=== PATIENT | female | born 1995 | race Caucasian/White ===

== ENCOUNTER 2023-03-13 17:16 | Inpatient (IN) | payer MEDICAID ==
[~2023-03-13] VITALS: Ht 152.4 cm; Wt 47.2 kg
[2023-03-13 17:44] VITALS: BP 89/63
--- NOTE | 2023-03-13 17:51 | NUR ---
AMBULATED TO BED11. USED SPOOL [facility] [id number]
[2023-03-13 18:18] LABS: BASOPHILS % (AUTO) 0.6 % (0.0-2.0); EOSINOPHILS % (AUTO) 0.9 % (0.0-4.0); LYMPHOCYTES # (AUTO) 1.9 K/uL (2.5-16.5); LYMPHOCYTES % (AUTO) 36.4 % (20.5-51.1); MEAN CORPUSCULAR HEMOGLOBIN 15 pg (27-31); MEAN CORPUSCULAR HGB CONC 28 g/dL (33-37); MEAN CORPUSCULAR VOLUME 54.8 fL (80-94); MONOCYTES # (AUTO) 0.5 K/uL (0.8-1.0); MONOCYTES % (AUTO) 9.1 % (1.7-9.3); NEUTROPHILS # (AUTO) 2.7 K/uL (1.8-7.7); PLATELET COUNT (AUTO) 477 K/uL (140-450); RED BLOOD CELL COUNT(AUTO) 2.93 MIL/uL (4.20-5.40); RED CELL DISTRIBUTION WIDTH 22.5 % (11.6-13.7); WHITE BLOOD COUNT (AUTO) 5.1 K/uL (4.8-10.8)
[2023-03-13 18:25] LABS: HEMATOCRIT 16.1 % (36-48); HEMOGLOBIN 4.5 g/dL (12.0-16.0)
[2023-03-13 18:37] LABS: APPEARANCE,URINE CLEAR (CLEAR); BILIRUBIN,URINE NEGATIVE (NEGATIVE); BLOOD, URINE TRACE-I (NEGATIVE); COLOR,URINE YELLOW (YELLOW); LEUKOCYTE ESTERASE ,URINE 2+ (NEGATIVE); NITRITE, URINE NEGATIVE (NEGATIVE); PH,URINE 8.5 (5.0-9.0); UGLUCOSE NEGATIVE (NEGATIVE)
[2023-03-13 18:38] LABS: RBC,URINE 0-5 /HPF (0-5)
[2023-03-13 18:47] LABS: ANION GAP 10.7 (8-16); CARBON DIOXIDE 27.2 mmol/L (21-32); CREATININE 0.7 mg/dL (0.6-1.3); POTASSIUM 3.9 mmol/L (3.5-5.1); TOTAL BILIRUBIN 0.2 mg/dL (0.0-1.0)
[2023-03-13 19:08] LABS: PROTHROMBIN TIME 9.6 secs (10.8-13.4)
[2023-03-13] MEDS ORDERED: cefTRIAXone 1,000 MG VIAL ONE (19:11)
--- NOTE | 2023-03-13 19:45 | NUR ---
Consent signed per pt agreeing to administration of blood. Blood has been type and crossmatched. Blood sent from blood bank. Information on unit of blood checked against patient wristband at bedside by two nurses. All information matches. Patient or responsible libertarian informed of potential complications associated with blood transfusion. Informed of possible transfusion reaction symptoms. Aware of need to notify nurse at once of itching, shortness of breath, flushing, feeling of impending doom, or other symptoms not previously present. Vital signs taken within 5 minutes prior to initiation of transfusion. RN will remain with patient for first 15 minutes of transfusion at which time vital signs will be re-assessed.
--- NOTE | 2023-03-13 20:00 | NUR ---
VS post 15 min of blood transfussion initiation monitored; tolerating well with no a/e noted at this time. Mother at bedside.
[2023-03-13] MEDS ORDERED: POTASSIUM CHLORIDE 10 MEQ TABER PO PRN (21:10)
[2023-03-13] MEDS ORDERED: ZOLPIDEM 5 MG TAB PO PRN (21:10)
[2023-03-13] MEDS ORDERED: guaiFENesin DM 200/20 MG-10 ML 10 ML UDC PO PRN (21:10)
[2023-03-13] MEDS ORDERED: DOCUSATE SODIUM 100 MG GELCAP PO PRN (21:10)
[2023-03-13] MEDS ORDERED: ACETAMINOPHEN 325 MG TAB PO PRN (21:10)
[2023-03-13] MEDS ORDERED: ONDANSETRON 4 MG/2 ML VIAL IM/IVP PRN (21:10)
[2023-03-13] MEDS ORDERED: HYDROcodone/APAP 7.5/325 MG 1 TAB PO PRN (21:10)
[2023-03-13] MEDS: DEXT 5% /NACL 0.9% 1,000 ML IV SCH (21:30)
[2023-03-13 21:45] LABS: CHOL/HDL RATIO 2.1 (1-4.5); FREE T4 (FREE THYROXINE) 0.87 ng/dL (0.76-1.46); MAGNESIUM 2.2 mg/dL (1.8-2.4); PHOSPHORUS 3.7 mg/dL (2.5-4.9); THYROID STIMULATING HORMONE 0.96 uIU/mL (0.34-3.74)
[2023-03-13] MEDS ORDERED: SODIUM FERRIC GLUCONATE 12.5 MG/ML AMP IV ONE (22:34)
[2023-03-13] MEDS: SODIUM FERRIC GLUCONATE 125 MG in NACL 0.9% 100 ML IV SCH (22:37)
--- NOTE | 2023-03-13 22:40 | NUR ---
1ST UNIT OF BLOOD TRAMSFUSION COMPLETED. PT TOLERATED WELL WITH NO REACTION NOTED.
--- NOTE | 2023-03-13 23:00 | NUR ---
MED RECONCILE DONE
--- NOTE | 2023-03-13 23:10 | NUR ---
2nd unit of blood initiated at this time.
--- NOTE | 2023-03-13 23:25 | NUR ---
Pt tolerating blood transfussion well. No signs of reaction noted.
--- NOTE | 2023-03-14 04:33 | NUR ---
3RD UNIT OF BLOOD COMPLETED. VS WNL. PT DENIES PAIN DENIES CP OR SOB. 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
--- NOTE | 2023-03-14 06:01 | NUR ---
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 PT IS IN [place]. PT IS AROUSABLE DENIES PAIN CP OR SOB. RESP EVEN AND UNLABORED.
[2023-03-14 07:27] LABS: BASOPHILS # (AUTO) 0.1 K/uL (0.00-0.22); BASOPHILS % (AUTO) 0.9 % (0.0-2.0); EOSINOPHILS # (AUTO) 0.1 K/uL (0-0.4); EOSINOPHILS % (AUTO) 0.9 % (0.0-4.0); HEMATOCRIT 29.1 % (36-48); HEMOGLOBIN 9.2 g/dL (12.0-16.0); LYMPHOCYTES # (AUTO) 1.9 K/uL (2.5-16.5); LYMPHOCYTES % (AUTO) 32.1 % (20.5-51.1); MEAN CORPUSCULAR HEMOGLOBIN 21 pg (27-31); MEAN CORPUSCULAR HGB CONC 32 g/dL (33-37); MEAN CORPUSCULAR VOLUME 65.6 fL (80-94); MONOCYTES # (AUTO) 0.5 K/uL (0.8-1.0); NEUTROPHILS # (AUTO) 3.4 K/uL (1.8-7.7); NEUTROPHILS % (AUTO) 58.1 % (42.2-75.2); PLATELET COUNT (AUTO) 336 K/uL (140-450); RED BLOOD CELL COUNT(AUTO) 4.43 MIL/uL (4.20-5.40); WHITE BLOOD COUNT (AUTO) 5.8 K/uL (4.8-10.8)
[2023-03-14 07:29] LABS: ANION GAP 11.3 (8-16); CREATININE 0.6 mg/dL (0.6-1.3); POTASSIUM 4.3 mmol/L (3.5-5.1)
--- NOTE | 2023-03-14 09:08 | NUR ---
PATIENT HAS BEEN SCREENED AND CATEGORIZED LOW NUTRITION RISK. PATIENT WILL BE SEEN WITHIN 7 DAYS OF ADMISSION. 03/20/[address] REVIEWED BY CHRISTIANA TAM RD
--- NOTE | 2023-03-14 10:18 | NUR ---
Patient will be admitted to care of DR Nancy SHEA. Admited to [facility]. Will go to room 110A. Belongings list completed. Report to VICTOR HUGO PIERCE.
[2023-03-14 12:25] VITALS: BP 99/62
--- NOTE | 2023-03-14 12:25 | NUR ---
RECEIVED REPORT FROM [facility] FOR CONTINUITY OF CARE. PT CAME FROM ER @ 0971 [address] [place]. ALERT AND ORIENTED X4 ENGLISH ONLY. ALERT AND VERBALLY RESPONSIVE. RESP. EVEN AND UNLABORED. SKIN INTACT. IV SITE INTACT TO LFA 20 G. NO C/O PAIN OR DISCOMFORT. MRSA SWAB COLLECTED SEND TO LAB. CALL LIGHT KEPT WITHIN REACH. WILL CONTINUE TO MONITOR. Addendum: 03/14/23 at 1258 by RENETTA EARL LVN PT CONTINENT TO BOWEL AND BLADDER.
[2023-03-14] MEDS: PANTOPRAZOLE 40 MG TABEC PO SCH (12:36)
--- NOTE | 2023-03-14 12:36 | NUR ---
PROTONIX PO WAS GIVEN. TOLERATED WELL.
[2023-03-14] MEDS: DEXT 5% /NACL 0.9% 1,000 ML IV SCH (13:50)
[2023-03-14 16:00] VITALS: BP 99/62
--- NOTE | 2023-03-14 19:25 | NUR ---
REPORT GIVEN TO [facility] PORTABLE MACHINE EVELIN FOR CONTINUITY OF CARE. REMAINS STABLE.
--- NOTE | 2023-03-14 19:30 | NUR ---
RECEIVED REPORT FROM DAY SHIFT NURSE FOR CONTINUITY OF CARE. PT IS AWAKE AND ALERT WITH FAMILY BY BEDSIDE. PT IS ON RA SATING 99%. PT NOT IN ANY DISTRESS. PT HAS LEFT AC 20 GAUGE AND RIGHT AC 20 GAUGE. RUNNING D5 NS 60 CC/HR. PT IS ABLE TO AMBULATE. GAIT STEADY. POC DISCUSSED. WILL CONTINUE TO MONITOR THE PT.
[2023-03-14 20:00] VITALS: BP 106/69
[2023-03-14] MEDS: SODIUM FERRIC GLUCONATE 125 MG in NACL 0.9% 100 ML IV SCH (20:30)
[2023-03-15] VITALS: BP 91/57
--- NOTE | 2023-03-15 | NUR ---
VITAL SIGNS TAKEN AND STABLE. PT WENT BACK TO SLEEP. NOT IN ANY DISTRESS. BREATHING EVEN AND UNLABORED. WILL CONTINUE TO MONITOR THE PT.
[2023-03-15] MEDS: DEXT 5% /NACL 0.9% 1,000 ML IV SCH (03:09)
[2023-03-15 04:00] VITALS: BP 96/56
--- NOTE | 2023-03-15 04:30 | NUR ---
OBSERVED PT. PT IS SLEEPING COMFORTABLY. NOT IN ANY DISTRESS. BREATHING EVEN AND UNLABORED. CALL LIGHT WITHIN REACH. WILL CONTINUE TO MONITOR THE PT.
--- NOTE | 2023-03-15 07:15 | NUR ---
ENDORSED PT TO DAY SHIFT RN FOR CONTINUITY OF CARE. PT IS STABLE.
--- NOTE | 2023-03-15 07:47 | NUR ---
RECEIVED PT CARE AND REPORT FROM EVELIN PIERCE. PT IS RESTING IN BED ON RIGHT SIDE. A&OX4, APPEARS CALM. NO VISIBLE S/S OF DISTRESS OR DISCOMFORT. DENIES SOB. COMPLAINS OF HEADACHE AND IS REQUESTING TYLENOL. WILL MEDICATE PATIENT WITH PRN TYLENOL 650MG ORDERED. CALL LIGHT IS WITHIN REACH, ALL OTHER NEEDS MET AT THIS TIME.
[2023-03-15 08:00] VITALS: BP 93/54
[2023-03-15 08:31] LABS: EOSINOPHILS # (AUTO) 0.1 K/uL (0-0.4); LYMPHOCYTES # (AUTO) 1.7 K/uL (2.5-16.5); MONOCYTES # (AUTO) 0.6 K/uL (0.8-1.0); NEUTROPHILS # (AUTO) 3.3 K/uL (1.8-7.7); WHITE BLOOD COUNT (AUTO) 5.8 K/uL (4.8-10.8)
[2023-03-15 08:51] LABS: BASOPHILS % (AUTO) 0.7 % (0.0-2.0); EOSINOPHILS % (AUTO) 2.3 % (0.0-4.0); HEMATOCRIT 29.3 % (36-48); LYMPHOCYTES % (AUTO) 29.3 % (20.5-51.1); MEAN CORPUSCULAR HEMOGLOBIN 20 pg (27-31); MEAN CORPUSCULAR HGB CONC 31 g/dL (33-37); MEAN CORPUSCULAR VOLUME 66.5 fL (80-94); MONOCYTES % (AUTO) 10.3 % (1.7-9.3); NEUTROPHILS % (AUTO) 57.4 % (42.2-75.2); PLATELET COUNT (AUTO) 363 K/uL (140-450); RED BLOOD CELL COUNT(AUTO) 4.42 MIL/uL (4.20-5.40); RED CELL DISTRIBUTION WIDTH 28.5 % (11.6-13.7)
[2023-03-15 09:03] LABS: ANION GAP 11.3 (8-16); CARBON DIOXIDE 23.8 mmol/L (21-32); CREATININE 0.7 mg/dL (0.6-1.3); POTASSIUM 4.1 mmol/L (3.5-5.1)
[2023-03-15] MEDS: PANTOPRAZOLE 40 MG TABEC PO SCH (09:15)
[2023-03-15 12:00] VITALS: BP 95/55
[2023-03-15 15:06] LABS: FOLIC ACID 10.1 ng/mL (>3.0)
[2023-03-15 16:00] VITALS: BP 105/62
[2023-03-15 16:06] LABS: T4 (THYROXINE) 8.5 ug/dL (4.5-12.0)
--- NOTE | 2023-03-15 18:44 | NUR ---
PT IS RESTING IN BED SEMI RAO, A&OX4, APPEARS CALM. PT COMPLAINING OF PAIN AT IV SITE AFTER ROCEPHIN WAS STARTED. SLOWED DOWN RATE TO 50ML/HR. PT STATED IT IS NO LONGER HURTING. NO VISIBLE S/S OF DISTRESS OR DISCOMFORT. DENIES SOB OR ANY MORE PAIN AT THIS TIME. CALL LIGHT IS WITHIN REACH, ALL NEEDS HAVE BEEN MET AT THIS TIME. WILL ENDORSE TO NOC SHIFT.
--- NOTE | 2023-03-15 19:30 | NUR ---
RECEIVE REPORT FROM DAY SHIFT RN FOR CONTINUITY OF CARE. PT IS AWAKE AND ALERT ENGLISH SPEAKING. PT IS AMBULATORY GAIT STEADY. PT COMPLAINED OF IV ON RIGHT AC THAT WAS HURTING. IV WAS REMOVED. CATHETER INTACT. PT STILL HAS IV ON LEFT FOREARM 20 GAUGE. PATENT AND INTACT. POC DISCUSSED. ALL QUESTIONS ANSWERED. WILL CONTINUE TO MONITOR THE PT.
[2023-03-15 20:00] VITALS: BP 104/61
[2023-03-16] VITALS: BP 97/59
--- NOTE | 2023-03-16 | NUR ---
OBSERVED PT. PT IS SLEEPING COMFORTABLY IN BED. NOT IN ANY DISTRESS. BREATHING EVEN AND UNLABORED. BED AT THE LOWEST POSITION. CALL LIGHT WITHIN REACH. WILL CONTINUE TO MONITOR THE PT.
--- NOTE | 2023-03-16 03:50 | NUR ---
PT COMPLAINED OF RIGHT ARM PAIN. WANTED PAIN MEDICATION. NORCO WAS GIVEN. PAIN LEVEL OF 5/10. NO OTHER COMPLAINS. WILL CONTINUE TO MONITOR THE PT.
[2023-03-16 04:00] VITALS: BP 94/62
[2023-03-16 06:40] LABS: ANION GAP 12.1 (8-16); CREATININE 0.7 mg/dL (0.6-1.3); POTASSIUM 4.1 mmol/L (3.5-5.1)
[2023-03-16 06:57] LABS: BASOPHILS % (AUTO) 0.5 % (0.0-2.0); EOSINOPHILS # (AUTO) 0.2 K/uL (0-0.4); EOSINOPHILS % (AUTO) 2.3 % (0.0-4.0); HEMATOCRIT 31.2 % (36-48); HEMOGLOBIN 9.8 g/dL (12.0-16.0); LYMPHOCYTES # (AUTO) 2.4 K/uL (2.5-16.5); LYMPHOCYTES % (AUTO) 28.9 % (20.5-51.1); MEAN CORPUSCULAR HEMOGLOBIN 21 pg (27-31); MEAN CORPUSCULAR HGB CONC 31 g/dL (33-37); MEAN CORPUSCULAR VOLUME 67.4 fL (80-94); MONOCYTES # (AUTO) 0.9 K/uL (0.8-1.0); MONOCYTES % (AUTO) 10.5 % (1.7-9.3); NEUTROPHILS # (AUTO) 4.8 K/uL (1.8-7.7); NEUTROPHILS % (AUTO) 57.8 % (42.2-75.2); PLATELET COUNT (AUTO) 367 K/uL (140-450); RED BLOOD CELL COUNT(AUTO) 4.63 MIL/uL (4.20-5.40); RED CELL DISTRIBUTION WIDTH 29.6 % (11.6-13.7); WHITE BLOOD COUNT (AUTO) 8.3 K/uL (4.8-10.8)
--- NOTE | 2023-03-16 07:15 | NUR ---
ENDORSED PT TO DAY SHIFT RN FOR CONTINUITY OF CARE. PT IS STABLE.
[2023-03-16 08:00] VITALS: BP 93/49
[2023-03-16] MEDS: PANTOPRAZOLE 40 MG TABEC PO SCH (09:17)
[2023-03-16] MEDS ORDERED: FERR325E14 PO (09:49)
[2023-03-16 10:55] VITALS: BP 93/49
[2023-03-16 12:00] VITALS: BP 108/76
--- NOTE | 2023-03-16 13:17 | NUR ---
DISCHARGE PATIENT IN STABLE CONDITION HOME PER PCP ORDER AT 1300 (TIME PER PATIENT REQUEST). DISCHARGE INSTRUCTION GIVE IN [facility], DISCHARGE CONSENT SIGN, IV ACCESS, WRIST BAND, & TEL. MONITOR REMOVED BEFORE PATIENT WALKING OUT THE FACILITY WITH SIGNIFICANT OTHER/FAMILY.
== END 2023-03-16 13:05 | disposition home or self-care (01) | DRG 663 ==
LOC: MED 17:16 → MTU 18:59
PROVIDERS: ADMIT Family Medicine; ATTEND Family Medicine
PROC: 30233N1 Transfusion of Nonautologous Red Blood Cells into Peripheral Vein, Percutaneous Approach (ICD-10-PCS; principal; 2023-03-13)
DX: D50.9 Iron deficiency anemia, unspecified (principal); N30.91 Cystitis, unspecified with hematuria; Z20.822 Contact with and (suspected) exposure to COVID-19
CPT/HCPCS: 36415; 80048; 80053; 81001; 82150; 82607; 82728; 82746; 83036; 83540; 83690; 83735; 83880; 84100; 84436; 84439; 84443; 84479; 85025; 85045; 85610; 85730; 86886; 86900; 86901; 86920; 87040; 87086; J0696; J2916; J7060; P9016

== ENCOUNTER 2023-03-27 12:20 | Emergency (ER) | payer MEDICAID ==
[~2023-03-27] VITALS: Ht 152.4 cm; Wt 49.4 kg
[~2023-03-27 12:20] MED LIST: FERR325E14 PO
[2023-03-27 12:45] VITALS: BP 108/75
[2023-03-27] MEDS ORDERED: NACL 0.9% 1,000 ML IV ONE (13:15)
[2023-03-27] MEDS ORDERED: ONDANSETRON 4 MG/2 ML VIAL IVP ONE (13:15)
[2023-03-27] MEDS ORDERED: KETOROLAC 15 MG/ML VIAL IVP ONE (13:15)
--- NOTE | 2023-03-27 13:25 | NUR ---
AMBULATED WITH STEADY GAIT TO RM 6. PT AWAKE AND ALERT AND PLEASANTLY CONVERSANT WITH STAFF
--- NOTE | 2023-03-27 13:43 | NUR ---
urine specimen given to lab. nicolas and flu swabbed and given to lab with blood samples
[2023-03-27 13:48] LABS: HEMATOCRIT 39.5 % (36-48); HEMOGLOBIN 12.5 g/dL (12.0-16.0); MEAN CORPUSCULAR HEMOGLOBIN 23 pg (27-31); MEAN CORPUSCULAR HGB CONC 32 g/dL (33-37); MEAN CORPUSCULAR VOLUME 73.5 fL (80-94); PLATELET COUNT (AUTO) 366 K/uL (140-450); RED BLOOD CELL COUNT(AUTO) 5.37 MIL/uL (4.20-5.40); RED CELL DISTRIBUTION WIDTH 34.9 % (11.6-13.7); WHITE BLOOD COUNT (AUTO) 8.5 K/uL (4.8-10.8)
[2023-03-27 13:49] LABS: BILIRUBIN,URINE NEGATIVE (NEGATIVE); BLOOD, URINE NEGATIVE (NEGATIVE); COLOR,URINE YELLOW (YELLOW); LEUKOCYTE ESTERASE ,URINE 3+ (NEGATIVE); NITRITE, URINE NEGATIVE (NEGATIVE); PH,URINE 7.5 (5.0-9.0); UGLUCOSE NEGATIVE (NEGATIVE)
[2023-03-27 14:02] LABS: ALBUMIN 4.3 g/dL (3.4-5.0); ANION GAP 13.6 (8-16); CARBON DIOXIDE 26.4 mmol/L (21-32); CREATININE 0.7 mg/dL (0.6-1.3); TOTAL BILIRUBIN 0.2 mg/dL (0.0-1.0)
[2023-03-27 14:06] LABS: APPEARANCE,URINE HAZY (CLEAR); OTHER CRYSTALS,URINE None Seen /HPF (None Seen); RBC,URINE 0-5 /HPF (0-5); TRICHOMONAS,URINE None Seen /HPF (None Seen); URIC ACID CRYSTALS,URINE None Seen /HPF (None Seen); YEAST,URINE None Seen /HPF (None Seen)
[2023-03-27 14:07] LABS: CALCIUM OXALATE CRYSTALS,UR None Seen /HPF (None Seen); COARSE GRANULAR CASTS,URINE None Seen /LPF (None Seen); FINE GRANULAR CASTS,URINE None Seen /LPF (None Seen); HYALINE CASTS, URINE None Seen /LPF (None Seen); OTHER CASTS, URINE None Seen /LPF (None Seen); RED BLOOD CELL CASTS,URINE None Seen /LPF (None Seen); TRIPLE PHOSPHATE CRYSTAL,UR None Seen /HPF (None Seen); URINE AMORPHOUS URATE None Seen /HPF (None Seen); WAXY CASTS,URINE None Seen /LPF (None Seen)
[2023-03-27] MEDS ORDERED: cephALEXin 500 MG CAP PO ONE (14:35)
[2023-03-27] MEDS ORDERED: IBUP-2213 PO (14:47)
[2023-03-27] MEDS ORDERED: CEPH-588 PO (14:47)
--- NOTE | 2023-03-27 15:10 | NUR ---
IV removed, catheter intact and site benign. Applied folded 4x4 gauze and tape to stop bleeding.
[2023-03-27 15:15] VITALS: BP 100/54
--- NOTE | 2023-03-27 15:15 | NUR ---
Patient discharged with v/s stable. Written and verbal after care instructions given. Patient alert, oriented and verbalized understanding of instructions. Ambulatory with steady gait. All questions addressed prior to discharge. ID band removed. Patient advised to follow up with PMD. Rx of Keflex and Ibuprofen given. Opportunity to ask questions provided and answered.
== END 2023-03-27 15:15 | disposition home or self-care (01) ==
LOC: MED 12:20
DX: N39.0 Urinary tract infection, site not specified (principal); Z20.822 Contact with and (suspected) exposure to COVID-19; R23.1 Pallor; Z79.899 Other long term (current) drug therapy; Z79.2 Long term (current) use of antibiotics; Z79.1 Long term (current) use of non-steroidal anti-inflammatories (NSAID)
CPT/HCPCS: 36415; 80053; 81001; 81025; 83690; 85025; 86886; 86900; 86901; 87086; 87426; 87804; 93005; 96361; 96374; 96375; 99284; J1885; J2405; J7030

== ENCOUNTER 2023-05-09 12:08 | Emergency (ER) | payer SELFPAY ==
[~2023-05-09] VITALS: Ht 157.5 cm; Wt 49.0 kg
[~2023-05-09 12:08] MED LIST changes: +CEPH-588 PO; +IBUP-2213 PO
[2023-05-09 12:23] VITALS: BP 108/61; PULSE 75; RESP 18; TEMP 97; O2SAT 98
--- NOTE | 2023-05-09 13:24 | NUR ---
PT AMBULATED TO BED 06
[2023-05-09 13:32] LABS: BASOPHILS # (AUTO) 0.1 K/uL (0.00-0.22); BASOPHILS % (AUTO) 0.9 % (0.0-2.0); EOSINOPHILS # (AUTO) 0.2 K/uL (0-0.4); EOSINOPHILS % (AUTO) 2.4 % (0.0-4.0); HEMATOCRIT 36.5 % (36-48); HEMOGLOBIN 11.7 g/dL (12.0-16.0); LYMPHOCYTES # (AUTO) 2.8 K/uL (2.5-16.5); LYMPHOCYTES % (AUTO) 36.9 % (20.5-51.1); MEAN CORPUSCULAR HEMOGLOBIN 26 pg (27-31); MEAN CORPUSCULAR HGB CONC 32 g/dL (33-37); MEAN CORPUSCULAR VOLUME 79.8 fL (80-94); MONOCYTES # (AUTO) 0.5 K/uL (0.8-1.0); MONOCYTES % (AUTO) 6.9 % (1.7-9.3); NEUTROPHILS % (AUTO) 52.9 % (42.2-75.2); PLATELET COUNT (AUTO) 287 K/uL (140-450); RED BLOOD CELL COUNT(AUTO) 4.58 MIL/uL (4.20-5.40); RED CELL DISTRIBUTION WIDTH 22.4 % (11.6-13.7); WHITE BLOOD COUNT (AUTO) 7.5 K/uL (4.8-10.8)
[2023-05-09 13:56] LABS: ALBUMIN 4.1 g/dL (3.4-5.0); ANION GAP 10.4 (8-16); CARBON DIOXIDE 27.4 mmol/L (21-32); CREATININE 0.8 mg/dL (0.6-1.3); FREE T4 (FREE THYROXINE) 1.01 ng/dL (0.76-1.46); POTASSIUM 3.8 mmol/L (3.5-5.1); THYROID STIMULATING HORMONE 0.81 uIU/mL (0.34-3.74); TOTAL BILIRUBIN 0.2 mg/dL (0.0-1.0)
--- NOTE | 2023-05-09 14:16 | NUR ---
Dr. Hutchinson re-evaluating patient at bedside.
[2023-05-09 14:48] VITALS: BP 115/69; PULSE 60; RESP 15; TEMP 98.1; O2SAT 99
--- NOTE | 2023-05-09 14:48 | NUR ---
Patient discharged with v/s stable. Written and verbal after care instructions given. Patient verbalized understanding. Ambulatory with steady gait. All questions addressed prior to discharge. Advised to follow up with PMD. WORK NOTE HANDED TO PATIENT.
--- NOTE | 2023-05-09 14:49 | NUR ---
The patient's care was reviewed and supervised by Tasha Abbott, RN, RN.
== END 2023-05-09 14:48 | disposition home or self-care (01) ==
LOC: MED 12:08
DX: G44.209 Tension-type headache, unspecified, not intractable (principal); R07.89 Other chest pain; D64.9 Anemia, unspecified; Z79.899 Other long term (current) drug therapy
CPT/HCPCS: 36415; 80053; 81025; 84439; 84443; 85025; 93005; 99284

== ENCOUNTER 2023-08-02 13:37 | Emergency (ER) | payer MEDICAID ==
[~2023-08-02] VITALS: Ht 157.5 cm; Wt 47.7 kg
[2023-08-02 14:02] VITALS: BP 144/72; PULSE 83; RESP 20; TEMP 97.7; O2SAT 97
[2023-08-02] MEDS ORDERED: KETOROLAC 30 MG/ML VIAL IM ONE (15:00)
[2023-08-02 15:41] LABS: ANION GAP 11.8 (8-16); CALCIUM 9.3 mg/dL (8.5-10.1); CREATININE 0.8 mg/dL (0.6-1.3); POTASSIUM 3.8 mmol/L (3.5-5.1)
[2023-08-02 16:05] LABS: BASOPHILS # (AUTO) 0.1 K/uL (0.00-0.22); BASOPHILS % (AUTO) 0.8 % (0.0-2.0); EOSINOPHILS # (AUTO) 0.1 K/uL (0-0.4); EOSINOPHILS % (AUTO) 1.6 % (0.0-4.0); HEMATOCRIT 39.9 % (36-48); HEMOGLOBIN 12.9 g/dL (12.0-16.0); LYMPHOCYTES # (AUTO) 1.8 K/uL (2.5-16.5); LYMPHOCYTES % (AUTO) 22.1 % (20.5-51.1); MEAN CORPUSCULAR HEMOGLOBIN 26 pg (27-31); MEAN CORPUSCULAR HGB CONC 32 g/dL (33-37); MEAN CORPUSCULAR VOLUME 81.2 fL (80-94); MONOCYTES # (AUTO) 0.5 K/uL (0.8-1.0); NEUTROPHILS # (AUTO) 5.6 K/uL (1.8-7.7); NEUTROPHILS % (AUTO) 69.5 % (42.2-75.2); PLATELET COUNT (AUTO) 344 K/uL (140-450); RED BLOOD CELL COUNT(AUTO) 4.92 MIL/uL (4.20-5.40); RED CELL DISTRIBUTION WIDTH 18.3 % (11.6-13.7)
[2023-08-02 16:26] LABS: APPEARANCE,URINE CLEAR (CLEAR); BILIRUBIN,URINE NEGATIVE (NEGATIVE); BLOOD, URINE TRACE-I (NEGATIVE); LEUKOCYTE ESTERASE ,URINE 1+ (NEGATIVE); NITRITE, URINE NEGATIVE (NEGATIVE); PH,URINE 5.5 (5.0-9.0); PROTEIN,URINE NEGATIVE (NEGATIVE); UGLUCOSE NEGATIVE (NEGATIVE); UROBILINOGEN,URINE 0.2 EU/dL (0.2 - 1)
[2023-08-02 16:35] LABS: COLOR,URINE STRAW (YELLOW)
[2023-08-02 17:02] LABS: BACTERIA,URINE 1+ /HPF (None Seen); RBC,URINE 0-5 /HPF (0-5); SQUAMOUS EPITHELIAL CELL,UR 4-10 (MOD) /LPF (0-3 (FEW)); WBC,URINE 0-5 /HPF (0-5)
[2023-08-02] MEDS ORDERED: CEPH250C16 PO (17:09)
== END 2023-08-02 17:14 | disposition home or self-care (01) ==
LOC: MED 13:37
DX: G44.209 Tension-type headache, unspecified, not intractable (principal); N39.0 Urinary tract infection, site not specified; Z79.899 Other long term (current) drug therapy; Z79.1 Long term (current) use of non-steroidal anti-inflammatories (NSAID); Z79.2 Long term (current) use of antibiotics
CPT/HCPCS: 36415; 80048; 81001; 81025; 85025; 87086; 96372; 99283; J1885